=== PATIENT | female | born 1990 | race Caucasian/White ===

== ENCOUNTER 2016-12-07 13:45 | Emergency (ER) | payer MEDICAID ==
[~2016-12-07] VITALS: Ht 172.7 cm; Wt 120.5 kg
[2016-12-07 13:49] VITALS: TEMP 99.1
[2016-12-07] MEDS ORDERED: NORCO 325 MG-51 TAB PO (13:53)
[2016-12-07] MEDS ORDERED: TOPAMAX25 M1 PO (13:53)
[2016-12-07 15:27] VITALS: BP 123/88; PULSE 87
== END 2016-12-07 15:28 | disposition home or self-care (01) ==
LOC: COL.ER 13:45
DX: R51 Headache (principal)
CPT/HCPCS: J3010